=== PATIENT | male | born 1955 | race Caucasian/White ===

== ENCOUNTER → 2023-03-27 08:59 | Outpatient (CLI) | payer MEDICARE, SELFPAY ==
--- NOTE | 2023-03-27 | DI.ECHO.S_ITS ---
[place]---------+ [facility] +---------+ : : [address] : [address] : : : : [id number] : : : : Phone: [phone]+ Echocardiogram Report + + :Name: GORDY GRIDER Study Date: 03/27/2023 Height: 66 in : :[facility] ReadingLocation: Weight: 156 lb : : Gender: Male BSA: 1.8 m2 : :: 1955 Age: 68 yrs BP: 132/79 mmHg: :Reason For Study: CHEST PAIN : :Ordering Physician: EWA, : :JEANNE Saini Performed By: Abril Richards : :Referring: JEANNE CASTILLO : + + Interpretation Summary The ejection fraction is estimated to be 60-65%. Diastolic parameters suggest probable normal left ventricular diastolic function and normal filling pressures. The right ventricle is normal in size and function. There is mild tricuspid regurgitation. The right ventricular systolic pressure is estimated to be at least 28 mmHg based on an estimated right atrial pressure of 3 mm Hg. Procedure: A two-dimensional transthoracic echocardiogram with color flow and Doppler was performed. The study quality was technically adequate. There is no prior echocardiogram noted for this patient. The patient was in sinus rhythm with heart rates between 68-74 bpm during the exam. Left Ventricle: The left ventricle is normal in size and wall thickness. The ejection fraction is estimated to be 60-65%. Diastolic parameters suggest probable normal left ventricular diastolic function and normal filling pressures. Right Ventricle: The right ventricle is normal in size and function. Atria: The left atrial size is normal. Right atrial size is normal. There is no Doppler evidence for an interatrial shunt. Mitral Valve: The mitral valve is normal in structure and function. There is no mitral regurgitation noted. Aortic Valve: The aortic valve is trileaflet. The aortic valve opens well. There is no aortic valve stenosis. No aortic regurgitation is present. Tricuspid Valve: The tricuspid valve is normal in structure and function. There is mild tricuspid regurgitation. The right ventricular systolic pressure is estimated to be at least 28 mmHg based on an estimated right atrial pressure of 3 mm Hg. Pulmonic Valve: The pulmonic valve is not well seen, but is grossly normal. There is mild pulmonic regurgitation. Great Vessels: The aortic root is normal size. The dimensions of the ascending aorta are normal. The IVC is of normal diameter and collapses greater than 50% with a sniff. This suggests a low right atrial pressure of 3 mm Hg. Pericardium/ Pleura There is no pericardial effusion. There is no pleural effusion. MMode/2D Measurements & Calculations LVIDd: 5.0 cm LVOT diam: 2.0 cm LVIDs: 3.5 cm Ao root diam: 3.4 cm FS: 28.8 % asc Aorta Diam: 3.1 cm IVSd: 0.70 cm Ao Arch Diam (Prox Trans): 3.2 cm LVPWd: 0.75 cm LV kelly. diameter/BSA (cm/m^2): 2.8 LV sys. diameter/BSA (cm/m^2): 2.0 LA A2 area: 14.5 cm2 RA long axis: 4.8 cm LA A4 area: 12.9 cm2 RA area: 13.3 cm2 LA length (vol): 4.7 cm RA vol: 31.6 ml LA vol: 34.0 ml RA : 17.5 ml/m2 LA vol index: 18.9 ml/m2 IVC diam: 1.5 cm RVD1 (basal): 3.8 cm RVD2 (mid): 2.9 cm TAPSE: 2.6 cm Doppler Measurements & Calculations Ao V2 max: 145.0 cm/sec LVOT Max Norberto: 115.4 cm/sec Ao V2 mean: 112.6 cm/sec LV V1 max P.3 mmHg Ao max P.4 mmHg LV V1 VTI: 24.6 cm Ao mean P.4 mmHg ANSHU(I,D): 2.4 cm2 Ao V2 VTI: 31.3 cm ANSHU(V,D): 2.4 cm2 sev ratio: 0.79 ANSHU indexed to BSA (cm^2/m^2): 1.3 MV E max norberto: 71.7 cm/sec TR max norberto: 233.4 cm/sec MV A max norberto: 83.3 cm/sec TR max P.8 mmHg MV E/A: 0.86 PA V2 max: 108.2 cm/sec Med Peak E' Norberto: 9.3 cm/sec PA V2 mean: 78.9 cm/sec E/E' med: 7.7 PA mean P.7 mmHg Lat Peak E' Norberto: 10.3 cm/sec PA pr(Accel): 19.1 mmHg E/E' lat: 7.0 E/e' average: 7.4 MV dec time: 0.23 sec SV(LVOT): 75.0 ml Reading Physician:03:08 PM
--- NOTE | 2023-03-27 19:31 | DI.NM.S_ITS ---
DATE OF SERVICE: 03/27/2023 PROCEDURE: Exercise perfusion study. INDICATIONS: Exertional shortness of breath. RADIOPHARMACEUTICAL: 25.9 mCi technetium-99m Myoview IV was injected at stress and 12.5 mCi technetium-99m Myoview IV was injected at rest. CARDIAC STRESS: The patient underwent exercise perfusion study under the supervision of an attending staff. The patient walked on Yuri protocol for 8 minutes and 33 seconds, achieved maximum heart rate of 144, which was 96% of target heart rate. Resting blood pressure 130/78 mmHg and peak blood pressure 172/90 mmHg. Achieved 10.1 METs of workload and ADILIA -20%.Baseline rhythm sinus. During stress no convincing ischemic changes No anginal symptoms. RAW DATA: There is increased subdiaphragmatic activity. GATED STUDY: Stress LV ejection fraction 81% without any obvious wall motion abnormalities. Resting end-diastolic volume 85 mL. TID ratio 0.61, which is within normal limits. Lung/heart ratio 0.20, which is within normal limits. MYOCARDIAL PERFUSION SCAN: Stress supine, resting supine and stress prone images were compared to each other. Stress supine and resting supine images revealed small to moderate size, mildly decreased perfusion of inferior wall which got completely resolved during stress prone images suggestive of diaphragmatic tissue attenuation artifact. No reversible ischemia or infarction pattern. CONCLUSION: This is a normal myocardial perfusion study with evidence of diaphragmatic tissue attenuation artifact, which got completely resolved during stress prone images. Stress prone images revealed normal myocardial perfusion. Excellent exercise tolerance. ADILIA -20%. Normal hemodynamic response. No significant arrhythmias. Overall, low-risk myocardial perfusion scan. Ramón Carmona - JOHN/fabien/ doc#: [id number]/job#: [id number] dd: 03/27/2023 16:31:00 dt: 03/27/2023 19:14:00 DICTATING MD/COPIES TO: Caron Justin MD COPIES MNE: NOMAN;
== END ==
PROVIDERS: PCP Physician Assistant; Referring Provider Internal Medicine Cardiovascular Disease; Visit Provider Internal Medicine Cardiovascular Disease
DX: R06.02 Shortness of breath (principal); R07.9 Chest pain, unspecified; I07.1 Rheumatic tricuspid insufficiency
CPT/HCPCS: 78452; 93017; 93306; A9502